=== PATIENT | male | born 1985 | race African-American/Black ===

== ENCOUNTER 2020-01-02 13:15 | Emergency (ER) | payer OTHER ==
[~2020-01-02] VITALS: Ht 188 cm; Wt 83.9 kg
[2020-01-02 15:00] VITALS: BP 122/54
== END 2020-01-02 15:00 | disposition home or self-care (01) ==
LOC: ER 13:15
DX: S01.412A Laceration without foreign body of left cheek and temporomandibular area, initial encounter (principal); Z88.0 Allergy status to penicillin; W26.8XXA Contact with other sharp object(s), not elsewhere classified, initial encounter; Y93.89 Activity, other specified; Y92.89 Other specified places as the place of occurrence of the external cause; Y99.8 Other external cause status